=== PATIENT | male | born 1955 | race Caucasian/White ===

== ENCOUNTER 2019-02-05 09:31 | Day surgery (SDC) | payer MEDICARE, MEDICAID ==
[~2019-02-05] VITALS: Ht 175.3 cm; Wt 104.6 kg
[2019-02-05] MEDS ORDERED: SODIUM CHLORIDE 0.9% 1,000 ML IV SCH (09:50)
[2019-02-05] MEDS ORDERED: LEVOTHYROXINE PO (10:00)
[2019-02-05] MEDS ORDERED: ATOR40TA78 PO (10:00)
[2019-02-05] MEDS ORDERED: WARFARIN PO (10:00)
[2019-02-05] MEDS ORDERED: PLEASE ENTER HEIGHT AND WEIGHT MC SCH (10:00)
[2019-02-05] MEDS ORDERED: PLEASE ENTER ALLERGIES MC SCH (10:00)
[2019-02-05] MEDS ORDERED: SULF1TAB24 PO (10:00)
[2019-02-05] MEDS ORDERED: HYDR25TA6 PO (10:00)
[2019-02-05] MEDS ORDERED: LISI40TA PO (10:00)
[2019-02-05 10:24] VITALS: BP 138/88
[2019-02-05] MEDS ORDERED: CEFAZOLIN 2,000 MG in SODIUM CHLORIDE 0.9% 100 ML IV STA (10:53)
[2019-02-05 11:11] LABS: BASOPHILS # (AUTO) 0.03 x10^3/uL (0-0.1); BASOPHILS % (AUTO) 0 % (0-1); EOSINOPHILS # (AUTO) 0.12 x10^3/uL (0-0.4); EOSINOPHILS % (AUTO) 2 % (1-7); LYMPHOCYTES % (AUTO) 22 % (22-44); MD NO; MEAN CORPUSCULAR HGB CONC 33.9 g/dL (33.2-36.2); MEAN CORPUSCULAR VOLUME 91.5 fL (81-97); MEAN PLATELET VOLUME 7.6 fL (7.4-10.4); MONOCYTES # (AUTO) 0.59 x10^3/uL (0.2-0.8); MONOCYTES % (AUTO) 8 % (2-9); NEUTROPHILS # (AUTO) 5.31 x10^3/uL (1.8-6.8); NEUTROPHILS % (AUTO) 69 % (42-75); PLATELET COUNT 248 x10^3/uL (130-400); RED BLOOD COUNT 4.77 x10^6/uL (4.38-5.82); RED CELL DISTRIBUTION WIDTH 14.2 % (9.4-14.8)
[2019-02-05 11:16] LABS: INTERNATIONAL NORMALIZED RATIO 1.05 (0.93-1.1)
[2019-02-05 11:19] LABS: ANION GAP 6 mmol/L (5-15); CALCIUM 8.9 mg/dL (8.5-10.1); CHLORIDE 107 mmol/L (98-107)
[2019-02-05] MEDS ORDERED: LIDOCAINE-MPF 1%, 5ML ONE (11:28)
[2019-02-05] MEDS ORDERED: FENTANYL PF 100 MCG/2ML ONE (11:40)
[2019-02-05] MEDS ORDERED: FLUMAZENIL 0.1 MG/1 ML, 5ML ONE (11:41)
[2019-02-05] MEDS ORDERED: MIDAZOLAM 1 MG/ML, 5ML ONE (11:41)
[2019-02-05] MEDS ORDERED: NALOXONE 1 MG/ML, 2ML ONE (11:41)
[2019-02-05] MEDS ORDERED: HEPARIN 1,000 UNITS/ML, 10ML ONE (11:41)
[2019-02-05] MEDS ORDERED: PROTAMINE SULFATE 10 MG/ML, 25ML ONE (11:41)
[2019-02-05] MEDS ORDERED: CLOPIDOGREL 75 MG TABLET ONE (13:41)
[2019-02-05] MEDS ORDERED: VISIPAQUE 270 MG/ML, 50ML BOTTLE ONE (14:00)
== END 2019-02-05 17:15 | disposition home or self-care (01) ==
LOC: OUT 09:31
PROVIDERS: ATTEND Surgery
DX: I70.213 Atherosclerosis of native arteries of extremities with intermittent claudication, bilateral legs (principal); T82.856A Stenosis of peripheral vascular stent, initial encounter; I77.9 Disorder of arteries and arterioles, unspecified; I10 Essential (primary) hypertension; I65.21 Occlusion and stenosis of right carotid artery; I25.10 Atherosclerotic heart disease of native coronary artery without angina pectoris; E78.5 Hyperlipidemia, unspecified; F17.210 Nicotine dependence, cigarettes, uncomplicated; Z95.1 Presence of aortocoronary bypass graft; Z79.890 Hormone replacement therapy; Z79.01 Long term (current) use of anticoagulants; Z79.899 Other long term (current) drug therapy; Z98.890 Other specified postprocedural states; Z82.49 Family history of ischemic heart disease and other diseases of the circulatory system; Y83.8 Other surgical procedures as the cause of abnormal reaction of the patient, or of later complication, without mention of misadventure at the time of the procedure
CPT/HCPCS: 36415; 37220; 75625; 75716; 80048; 85025; 85610; 99156; 99157; C1725; C1760; C1769; C1894; J0690; J1644; J2250; J2720; J3010; J7030; Q9966; 75630; J2310

== ENCOUNTER 2019-10-05 02:20 | Emergency (ER) | payer MEDICAID, MEDICARE ==
[~2019-10-05] VITALS: Ht 170.2 cm; Wt 92.0 kg
[~2019-10-05 02:20] MED LIST: ATOR40TA78 PO; HYDR25TA6 PO; LEVOTHYROXINE PO; LISI40TA PO; SULF1TAB24 PO; WARFARIN PO
[2019-10-05 02:24] VITALS: BP 134/74
--- NOTE | 2019-10-05 02:33 | NUR ---
64Y M BIB EMS FROM HOME FOR HEADACHE X2DAYS. PT STS HE THREW AWAY SOME OF HIS BP MEDS BUT DOES NOT KNOW WHICH MEDICATIONS HE THREW AWAY. PER EMS PT BP WAS 170'S/100, PT WAS GIVEN TYLENOL SAFETY COMPANION. PT BP WAS 134/74 HERE. PT STS HEADACHE IS BETTER. MD AT BEDSIDE TO ASSESS.
--- NOTE | 2019-10-05 02:41 | NUR ---
PT CHANGING AND STS FAMILY IS ON THE WAY RIGHT NOW.
== END 2019-10-05 02:53 | disposition home or self-care (01) ==
LOC: ED 02:30
DX: R51 Headache (principal); I10 Essential (primary) hypertension; F17.200 Nicotine dependence, unspecified, uncomplicated
CPT/HCPCS: 99283